=== PATIENT | female | born 1995 | race African-American/Black ===

== ENCOUNTER 2016-10-03 08:25 | Emergency (ER) | payer SELFPAY ==
[~2016-10-03] VITALS: Ht 167.6 cm; Wt 62.0 kg
[~2016-10-03 08:25] MED LIST: HYDRO50 PO; PRED20 PO
[2016-10-03 08:27] VITALS: BP 103/68; PULSE 83; RESP 12; TEMP 98.5; O2SAT 99
[2016-10-03] MEDS ORDERED: BACT800T5 PO (08:40)
[2016-10-03] MEDS ORDERED: MUPI2%T TOPICAL (08:40)
[2016-10-03] MEDS ORDERED: CEPH500C PO (08:40)
--- NOTE | 2016-10-03 08:46 | PD ---
HPI Chief Complaint: Skin Problem Time Seen by Provider: 08:40 Travel History International Travel<30 days: No Contact w/Intl Traveler<30days: No Traveled to known affect area: No History of Present Illness HPI 20-year-old Janet female presents the emergency Department with sore tender raised lesion to the right distal posterior thigh which is present for the past several days. Patient has history of eczema and previous cysts, but denies MRSA. She has no fever, chills, or other symptoms. Patient states no drainage from the area as of yet. Pain is about 4/10. She has no known drug allergies. PFSH Past Medical History Diminished Hearing: No Integumentary: Yes (ECZEMA) Social History Alcohol Use: No Tobacco Use: No Substance Use: No Allergies-Medications (Allergen,Severity, Reaction): Coded Allergies: No Known Allergies (Verified , 10/03/16) Reported Meds & Prescriptions Reported Meds & Active Scripts Active Review of Systems Except as stated in HPI: all other systems reviewed are Neg General / Constitutional: No: Fever Eyes: No: Visual changes HENT: No: Headaches Cardiovascular: No: Chest Pain or Discomfort Respiratory: No: Shortness of Breath Gastrointestinal: No: Abdominal Pain Genitourinary: No: Dysuria Musculoskeletal: No: Pain Skin: Positive Lesions (see history present illness.), No Rash Neurologic: No: Weakness Psychiatric: No: Depression Endocrine: No: Polydipsia Hematologic/Lymphatic: No: Easy Bruising Physical Exam Narrative GENERAL: Patient appears in no acute distress. SKIN: Warm and dry. Normal color. Normal turgor. Patient has a oblong slightly raised indurated area to the right lower posterior thigh consistent with possible ingrown hair or early abscess. It does not appear to be worse drainage at this time. There is no lymphangitis. HEAD: Atraumatic. Normocephalic. EYES: Pupils equal and round. No scleral icterus. No injection or drainage. ENT: No nasal bleeding or discharge. Mucous membranes pink and moist. Pharynx is clear. NECK: Trachea midline. Supple nontender. CARDIOVASCULAR: Regular rate and rhythm. RESPIRATORY: No accessory muscle use. Clear to auscultation. Breath sounds equal bilaterally. MUSCULOSKELETAL: Extremities without clubbing, cyanosis, or edema. No obvious deformities. NEUROLOGICAL: Awake and alert. No obvious cranial nerve deficits. Motor grossly within normal limits. Five out of 5 muscle strength in the arms and legs. Normal speech. PSYCHIATRIC: Appropriate mood and affect; insight and judgment normal. Data Data Last Documented VS Vital Signs Date Time Temp Pulse Resp B/P Pulse Ox O2 Delivery O2 Flow Rate FiO2 10/03/16 08:27 98.5 83 12 103/68 99 MDM Medical Decision Making Medical Screen Exam Complete: Yes Emergency Medical Condition: Yes Medical Record Reviewed: Yes Differential Diagnosis Cellulitis. Ingrown hair. Early abscess. MRSA. Narrative Course Discussed treatment options with the patient who is medically stable. Patient is treated with Bactrim DS twice a day 7 days. Patient also started on Keflex 500 mg 3 times a day 7 days. Patient is to use topical Bactroban twice a day 7 days and use hot packs frequently as discussed. Patient is to follow up if symptoms do not improve or the area becomes more inflamed requiring I&D. Patient follow-up with her primary care as well. Diagnosis Primary Impression: Abscess Additional Impression: Cellulitis Qualified Code: L03.115 - Cellulitis of right lower extremity Referrals: [facility] Primary Care Physician Patient Instructions: Abscess (ED), Cellulitis (ED), General Instructions Additional Instructions: Discussed treatment options with the patient who is medically stable. Patient is treated with Bactrim DS twice a day 7 days. Patient also started on Keflex 500 mg 3 times a day 7 days. Patient is to use topical Bactroban twice a day 7 days and use hot packs frequently as discussed. Patient is to follow up if symptoms do not improve or the area becomes more inflamed requiring I&D. Patient follow-up with her primary care as well. Scripts Cephalexin 500 Mg [id number] Mg PO Q8H #21 CAP Prov:Alexi Varma MD 10/03/16 Mupirocin Topical (Bactroban Topical)22 Gm Cream1 Applic TOPICAL BID #1 TUBE Prov:Alexi Varma MD 10/03/16 Sulfamethoxazole-Trimethoprim (Bactrim DS)800-160 Mg Tab1 Tab PO BID #14 TAB Prov:Alexi Varma MD 10/03/16 Disposition: 01 DISCHARGE HOME Condition: Stable Luis Angel Munoz Oct 03, 2016 08:46
== END 2016-10-03 09:09 | disposition home or self-care (01) ==
LOC: NEPK 08:25
DX: L02.415 Cutaneous abscess of right lower limb (principal); L03.115 Cellulitis of right lower limb
CPT/HCPCS: 99284

== ENCOUNTER 2016-10-14 10:19 | Emergency (ER) | payer SELFPAY ==
[~2016-10-14 10:19] MED LIST changes: +BACT800T5 PO; +CEPH500C PO; -HYDRO50 PO; +MUPI2%T TOPICAL; -PRED20 PO
[2016-10-14 10:21] VITALS: BP 106/51; PULSE 61; RESP 15; TEMP 98.1; O2SAT 98
[2016-10-14] MEDS ORDERED: PREN29TA PO (11:01)
--- NOTE | 2016-10-14 11:02 | PD ---
HPI Chief Complaint: Abdominal Pain Time Seen by Provider: 10:47 Travel History International Travel<30 days: No Contact w/Intl Traveler<30days: No Traveled to known affect area: No History of Present Illness HPI This is a 20-year-old female who presents to the emergency department with lower abdominal cramping and nausea, moderate severity, constant. She hasn't had her period in 2 months. She thinks she might be but she was too scared to check a test at home. She denies any fevers, chills, dysuria, frequency or urgency. PFSH Past Medical History Medical History: Denies Significant Hx Diminished Hearing: No Integumentary: Yes (ECZEMA) ?: Unknown LMP: 2 mths Past Surgical History Surgical History: No Previous Surgery Social History Alcohol Use: No Tobacco Use: No Substance Use: No Allergies-Medications (Allergen,Severity, Reaction): Coded Allergies: No Known Allergies (Verified , 10/14/16) Reported Meds & Prescriptions Reported Meds & Active Scripts Active No Active Prescriptions or Reported Medications Review of Systems Except as stated in HPI: all other systems reviewed are Neg Physical Exam Narrative GENERAL:Well appearing, no acute distress SKIN: Focused skin assessment warm and dry. HEAD: Atraumatic. Normocephalic. EYES: Pupils equal and round. No injection or drainage. ENT: Moist mucous membranes NECK: Trachea midline. CARDIOVASCULAR: Regular rate and rhythm. No murmur appreciated. RESPIRATORY: Clear to auscultation. Breath sounds equal bilaterally. GASTROINTESTINAL: Abdomen soft, non-tender, nondistended. MUSCULOSKELETAL: No obvious deformities. NEUROLOGICAL: Awake and alert. No obvious cranial nerve deficits. Moving all extremities. PSYCHIATRIC: Appropriate mood and affect; insight and judgment normal. Data Data Last Documented VS Vital Signs Date Time Temp Pulse Resp B/P Pulse Ox O2 Delivery O2 Flow Rate FiO2 10/14/16 10:21 98.1 61 15 106/51 98 Orders Ed Urine Pregnancytest Poc (10/14/16 10:48) MDM Medical Decision Making Medical Screen Exam Complete: Yes Emergency Medical Condition: Yes Interpretation(s) Afebrile, no tachycardia, normotensive Differential Diagnosis , urinary tract infection, PID Narrative Course This is a 20-year-old female who presents to the emergency department with nausea and lower abdominal cramping. She has a benign abdominal exam. When he care test was positive. I don't suspect an ectopic as she is very well-appearing and her abdominal discomfort is very mild. Patient was advised to follow-up with the set illustrator and she was given some counseling. Diagnosis Primary Impression: Qualified Code: Z3A.49 - More than 42 weeks gestation of Patient Instructions: General Instructions Additional Instructions: Follow up with [facility] at: Follow up with: [facility] [address] [place] [address] Office Hours Friday - 9:00 am - 5:30 pm Friday 8:00 am - 12:00 pm Tuesdays 4:00 - 6:30 pm Med/Other Pt SpecificInfo: Prescription(s) given Scripts Vit-Iron Carbonyl ( Plus Iron 29-1 mg)1 Tab Tab1 Tab PO DAILY #30 TAB Ref 0 Prov:Allison Phillip MD 10/14/16 Disposition: 01 DISCHARGE HOME Condition: Stable Allison Phillip MD Oct 14, 2016 11:02
== END 2016-10-14 11:28 | disposition home or self-care (01) ==
LOC: NEPD 10:19
DX: Z32.01 Encounter for pregnancy test, result positive (principal); R10.30 Lower abdominal pain, unspecified; Z87.2 Personal history of diseases of the skin and subcutaneous tissue; Z3A.00 Weeks of gestation of pregnancy not specified
CPT/HCPCS: 84703; 99283

== ENCOUNTER 2016-10-19 12:10 | Emergency (ER) | payer SELFPAY ==
[~2016-10-19] VITALS: Ht 167.6 cm; Wt 60.0 kg
[~2016-10-19 12:10] MED LIST changes: -BACT800T5 PO; -CEPH500C PO; -MUPI2%T TOPICAL; +PREN29TA PO
[2016-10-19 12:11] VITALS: BP 111/61; PULSE 95; RESP 18; TEMP 98; O2SAT 99
--- NOTE | 2016-10-19 13:11 | PD ---
HPI Chief Complaint: Skin Problem Time Seen by Provider: 13:11 Travel History International Travel<30 days: No Contact w/Intl Traveler<30days: No Traveled to known affect area: No History of Present Illness HPI 20-year-old female presents to the emergency department for evaluation of buttock abscess for 5 days. Patient states this bump as been getting larger and more painful. Denies any discharge or drainage from the site. The patient is approximately 13 weeks , last menstrual period in July 2016. She denies any vaginal bleeding, discharge or abdominal cramping. Denies any fever , chills, nausea, vomiting. No modifying factors. No other complaints. PFSH Past Medical History Medical History: Denies Significant Hx Diminished Hearing: No Integumentary: Yes (ECZEMA) ?: Social History Alcohol Use: No Tobacco Use: No Substance Use: No Allergies-Medications (Allergen,Severity, Reaction): Coded Allergies: No Known Allergies (Verified , 10/14/16) Reported Meds & Prescriptions Reported Meds & Active Scripts Active Clindamycin (Clindamycin HCl) 150 Mg Cap 300 Mg PO Q6H 10 Days Plus Iron 29-1 mg ( Vit-Iron Carbonyl) 1 Tab Tab 1 Tab PO DAILY Review of Systems Except as stated in HPI: all other systems reviewed are Neg Physical Exam Narrative GENERAL: Well-nourished and well-developed pleasant patient in no acute distress who is nontoxic appearing. SKIN: Warm and dry. 3 cm in diameter raised fluctuant tender erythematous area to left posterior thigh just inferior to buttocks. No surrounding erythema or warmth. No discharge or drainage. HEAD: Normocephalic and atraumatic. EYES: No injection, drainage, or hyphema noted. PERRLA. EOMI. ENT: No nasal drainage noted. Oropharynx is clear. NECK: Supple and the trachea is midline. CARDIOVASCULAR: Regular rate and rhythm. RESPIRATORY: Breath sounds are equal bilaterally with no accessory muscle use, wheezing, rhonchi, or crackles. MUSCULOSKELETAL: No obvious deformities, swelling, cyanosis, or ecchymosis is present throughout the upper and lower extremities. Patient has full range of motion without any signs of neurovascular compromise. NEUROLOGICAL: Awake, alert, and oriented. Normal speech and gait. Cranial nerves are grossly intact. Data Data Last Documented VS Vital Signs Date Time Temp Pulse Resp B/P Pulse Ox O2 Delivery O2 Flow Rate FiO2 7/8/17 12:37 16 10/19/16 12:11 98.0 95 111/61 99 Orders Wound Culture And Gram Stain (10/19/16 13:10) MDM Medical Decision Making Medical Screen Exam Complete: Yes Emergency Medical Condition: Yes Differential Diagnosis Abscess versus cellulitis versus cyst Narrative Course 20-year-old female presents to the emergency department for evaluation of abscess to right upper posterior thigh. Patient is afebrile, vital signs are stable. I&D is performed and patient is placed on clindamycin. Discussed supportive care and advised follow-up as an outpatient with her PCP. Patient verbalizes understanding and agreement with treatment plan. Procedures Procedure Narrative After the risks and benefits were discussed the following procedure was performed: INCISION AND DRAINAGE OF ABSCESS: The area was prepped and was sterilely draped. A subcutaneous wheal of 1 % Xylocaine with epinephrine with a total number 5 mL was used to anesthetize the area. The area was properly anesthetized. A number 11 scalpel was used to make a 1 -cm incision across the area of the abscess. Purulence was expelled. Cultures were obtained. The abscess was drained an irrigated with normal saline. Quarter inch iodoform packing was placed in the wound. Sterile dressing applied. Patient advised to have packing removed in two days. Diagnosis Primary Impression: Abscess Referrals: Primary Care Physician Patient Instructions: Abscess (ED), Abscess Incision and Drainage (ED), General Instructions Additional Instructions: Have packing removed in 2 days. Apply warm compresses to the area for 20 minutes at a time. Take medications as prescribed with food and a full glass of water. [id number] Tylenol as directed on the box as needed for pain. Follow-up with your Primary Care Physician. Return to the ED for any acute worsening of symptoms. Med/Other Pt SpecificInfo: Prescription(s) given Scripts Clindamycin 150 Mg [id number] Mg PO Q6H 10 Days Ref 0 Prov:Sara Chamorro DO 10/19/16 Disposition: 01 DISCHARGE HOME Condition: Stable Minal Perez Oct 19, 2016 13:11
[2016-10-19] MEDS ORDERED: CLIN1CAP5 PO (13:12)
== END 2016-10-19 13:48 | disposition home or self-care (01) ==
LOC: NEPD 12:10
DX: O26.892 Other specified pregnancy related conditions, second trimester (principal); L02.31 Cutaneous abscess of buttock; Z3A.13 13 weeks gestation of pregnancy
CPT/HCPCS: 10061; 86403; 87070; 87186; 87205

== ENCOUNTER 2017-07-13 20:55 | Emergency (ER) | payer SELFPAY ==
[~2017-07-13] VITALS: Ht 167.6 cm; Wt 65.0 kg
[~2017-07-13 20:55] MED LIST changes: +CLIN150C14 PO
[2017-07-13 21:35] VITALS: BP 115/60; PULSE 91; RESP 18; TEMP 98.3; O2SAT 100
[2017-07-13] MEDS ORDERED: DEXAMETHASONE SOD PHOS 4 MG/ML VIAL IM ONE (23:00)
[2017-07-13] MEDS ORDERED: PENICILLIN G BENZATHINE 1,200,000 UNITS/2 ML SYRINGE IM ONE (23:00)
[2017-07-13] MEDS ORDERED: NAPR500T2 PO (23:04)
--- NOTE | 2017-07-13 23:04 | PD ---
HPI Chief Complaint: Cold / Flu Symptoms Time Seen by Provider: 22:52 Travel History International Travel<30 days: No Contact w/Intl Traveler<30days: No Traveled to known affect area: No History of Present Illness HPI 21-year-old woman presents to the emergency department complaining of swollen tonsils, painful swallowing, nasal congestion, headache, ongoing for the past week. Worse over the past several days. Some associated nausea vomiting. No history of recurrent throat infections in the past. Otherwise well. Boyfriend sick with cough cold symptoms. History Past Medical History Medical History: Denies Significant Hx Tetanus Vaccination: Unknown Influenza Vaccination: No LMP: 06/26/2017 Past Surgical History Surgical History: No Previous Surgery Social History Alcohol Use: No Tobacco Use: Yes Allergies-Medications (Allergen,Severity, Reaction): Coded Allergies: *MDRO Multi-Drug Resistant Organism (Verified Adverse Reaction, Unknown, ) MRSA (buttock) 10/19/16 Reported Meds & Prescriptions Reported Meds & Active Scripts Active Review of Systems Except as stated in HPI: all other systems reviewed are Neg Physical Exam Narrative GENERAL: Well-appearing 21-year-old woman, no acute distress. SKIN: Focused skin assessment warm/dry. HEAD: Atraumatic. Normocephalic. EYES: Pupils equal and round. No scleral icterus. No injection or drainage. ENT: No nasal bleeding or discharge. Mucous membranes pink and moist. Tonsils are large purulent exudates, anterior cervical adenopathy. Left TM is actually better erythematous and dull, she is not having left ear pain. Right TM looks unremarkable. NECK: Trachea midline. No meningismus per CARDIOVASCULAR: Regular rate and rhythm. No murmur appreciated. RESPIRATORY: No accessory muscle use. Clear to auscultation. Breath sounds equal bilaterally. GASTROINTESTINAL: Abdomen soft, non-tender, nondistended. Hepatic and splenic margins not palpable. MUSCULOSKELETAL: No obvious deformities. No clubbing. No cyanosis. No edema. NEUROLOGICAL: Awake and alert. No obvious cranial nerve deficits. Motor grossly within normal limits. Normal speech. PSYCHIATRIC: Appropriate mood and affect; insight and judgment normal. Data Data Last Documented VS Vital Signs Date Time Temp Pulse Resp B/P (MAP) Pulse Ox O2 Delivery O2 Flow Rate FiO2 07/13/17 21:35 98.3 91 18 115/60 (78) 100 Orders Orders Penicillin G Benzathine Inj (Bicillin L- (07/13/17 23:00) Dexamethasone Inj (Decadron Inj) (07/13/17 23:00) [facility] Medical Decision Making Medical Screen Exam Complete: Yes Emergency Medical Condition: Yes Differential Diagnosis Strep throat, tonsillitis, otitis, URI, other Narrative Course Medical decision making INITIAL: 21-year-old woman presents to the emergency department with tonsillitis. She looks well. Likely strep. Plan antibiotic steroids outpatient follow-up. Diagnosis Primary Impression: Tonsillitis Additional Instructions: Take naproxen as needed for sore throat or fevers. Follow-up with your primary doctor in 2-4 days if not feeling well. Return to the emergency department for any new or worsening symptoms. Med/Other Pt SpecificInfo: Prescription(s) given Scripts Naproxen (Naproxen) 500 Mg Tab 500 MG PO BID, #20 TAB 0 Refills Prov: Gian Bullard MD 07/13/17 Disposition: 01 DISCHARGE HOME Condition: Stable Gian Bullard MD Jul 13, 2017 23:04
[2017-07-13 23:34] VITALS: BP 114/60; PULSE 92; RESP 18; O2SAT 97
== END 2017-07-13 23:34 | disposition home or self-care (01) ==
LOC: NEPC 20:55
DX: J03.90 Acute tonsillitis, unspecified (principal); R51 Headache; Z72.0 Tobacco use
CPT/HCPCS: 96372; 99283; J0561; J1100